=== PATIENT | female | born 1990 | race American Indian/Alaskan Native ===

== ENCOUNTER 2020-12-11 08:44 | Emergency (ER) | payer MEDICAID ==
[2020-12-11 09:13] VITALS: BP 120/86
--- NOTE | 2020-12-11 10:23 | Emergency Department Report ---
ED Back Pain/Injury HPI - General Chief Complaint: Back Pain/Injury Stated Complaint: INTENSE BACK PAIN Time Seen by Provider: 12/11/20 10:17 Source: patient Limitations: No Limitations - History of Present Illness Initial Comments: Chief complaint: Back pain HPI: Is a 30-year-old female without significant past medical history presents with back pain for 1 week. Patient recently had a massage which improved her pain. She has sharp denies any pain radiating to both groin regions. She denies headache, fever, trauma, abdominal pain, vaginal discharge, dysuria. She typically has intermittent back pain infrequently. Normally is mild. This episode of back pain is much worse due to duration. Ibuprofen last night did not provide any relief. Pain is worse with bending and walking. 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 MD Complaint: back pain -: Gradual, week(s) Similar Symptoms Previously: Yes Place: work Severity scale (0 -10): 9 Quality: sharp Consistency: constant Improves With: immobilization Worsens With: movement, walking Context: other (No recent lifting or trauma) Associated Symptoms: denies other symptoms - Related Data Previous Rx's Medication Instructions Recorded Last Taken Type Cefuroxime Axetil [Ceftin] 500 mg PO Q12H #20 tablet 04/15/13 Unknown Rx Ibuprofen [Motrin] 800 mg PO TID PRN #20 tablet 04/15/13 Unknown Rx metroNIDAZOLE [Flagyl TAB] 500 mg PO BID #20 tablet 04/15/13 Unknown Rx Naproxen [Naprosyn TAB] 500 mg PO BID #30 tablet 01/03/14 Unknown Rx Acetaminophen [Acetaminophen ER 650 mg PO Q8HR PRN #90 tablet.er 04/30/15 Unknown Rx TAB] Metoclopramide [Reglan] 10 mg PO TID PRN #20 tab 04/30/15 Unknown Rx Nitrofurantoin Brooke/M-Cryst 100 mg PO Q12HR #14 capsule 04/30/15 Unknown Rx [Macrobid CAP] Ondansetron [Zofran Odt] 4 mg PO Q6H PRN #30 tab.rapdis 04/30/15 Unknown Rx Vit-Fe Fumar-FA [ 1 tab PO QDAY #90 tablet 04/30/15 Unknown Rx Vitamin] Cyclobenzaprine [Flexeril] 10 mg PO TID PRN #20 tablet 08/13/21 Unknown Rx HYDROcodone/APAP 5-325 [[place] 1 each PO Q6HR PRN #10 tablet 12/11/20 Unknown Rx 5/325] Naproxen [Naprosyn] 500 mg PO BID 5 Days #10 tablet 12/11/20 Unknown Rx Allergies Allergy/AdvReac Type Severity Reaction Status Date / Time No Known Allergies Allergy Unverified 04/14/13 22:25 ED Review of Systems ROS: Stated complaint: INTENSE BACK PAIN Other details as noted in HPI Comment: All other systems reviewed and negative Constitutional: denies: fever, malaise Respiratory: denies: cough, shortness of breath Cardiovascular: denies: chest pain Gastrointestinal: denies: abdominal pain, nausea, vomiting Genitourinary: denies: dysuria, discharge Neurological: denies: weakness ED Past Medical Hx - Past Medical History Previous Medical History?: Yes Hx Hypertension: Yes (with ) - Surgical History Past Surgical History?: Yes Additional Surgical History: 4 c-sections. Tubal ligation - Family History Family history: hypertension - Social History Smoking Status: Never Smoker Substance Use Type: None - Medications Home Medications: Home Medications Medication Instructions Recorded Confirmed Last Taken Type Cefuroxime Axetil [Ceftin] 500 mg PO Q12H #20 tablet 04/15/13 Unknown Rx Ibuprofen [Motrin] 800 mg PO TID PRN #20 tablet 04/15/13 Unknown Rx metroNIDAZOLE [Flagyl TAB] 500 mg PO BID #20 tablet 04/15/13 Unknown Rx Naproxen [Naprosyn TAB] 500 mg PO BID #30 tablet 01/03/14 Unknown Rx Acetaminophen [Acetaminophen ER 650 mg PO Q8HR PRN #90 tablet.er 04/30/15 Unknown Rx TAB] Metoclopramide [Reglan] 10 mg PO TID PRN #20 tab 04/30/15 Unknown Rx Nitrofurantoin [place]/M-Cryst 100 mg PO Q12HR #14 capsule 04/30/15 Unknown Rx [Macrobid CAP] Ondansetron [Zofran Odt] 4 mg PO Q6H PRN #30 tab.rapdis 04/30/15 Unknown Rx Vit-Fe Fumar-FA [ 1 tab PO QDAY #90 tablet 04/30/15 Unknown Rx Vitamin] Cyclobenzaprine [Flexeril] 10 mg PO TID PRN #20 tablet 12/11/20 Unknown Rx HYDROcodone/APAP 5-325 [[place] 1 each PO Q6HR PRN #10 tablet 12/11/20 Unknown Rx 5/325] Naproxen [Naprosyn] 500 mg PO BID 5 Days #10 tablet 12/11/20 Unknown Rx ED Physical Exam - General Limitations: No Limitations General appearance: alert, in no apparent distress, other (Steady normal gait, appears comfortable, able to stand change positions without assistance) - Head Head exam: Present: atraumatic, normocephalic - Eye Eye exam: Present: normal appearance - ENT ENT exam: Present: mucous membranes moist - Neck Neck exam: Present: normal inspection, full ROM - Respiratory Respiratory exam: Present: normal lung sounds bilaterally. Absent: respiratory distress, wheezes, rales, rhonchi - Cardiovascular Cardiovascular Exam: Present: regular rate, normal rhythm, normal heart sounds. Absent: systolic murmur, diastolic murmur, rubs, gallop - GI/Abdominal GI/Abdominal exam: Present: soft, normal bowel sounds. Absent: distended, tenderness, guarding, rebound - Extremities Exam Extremities exam: Present: normal inspection - Back Exam Back exam: Present: full ROM, muscle spasm. Absent: tenderness, CVA tenderness (R), paraspinal tenderness, vertebral tenderness - Neurological Exam Neurological exam: Present: alert, oriented X3 - Psychiatric Psychiatric exam: Present: normal affect, normal mood - Skin Skin exam: Present: warm, dry, intact, normal color. Absent: rash ED Course Vital Signs 12/11/20 09:12 Temperature 99.1 F Pulse Rate 75 Respiratory 18 Rate Blood Pressure 120/86 [Right] O2 Sat by Pulse 99 Oximetry ED Medical Decision Making - Medical Decision Making Acute back pain due to lumbar strain. Patient does have notable spasm in the lower paraspinal region prescribed naproxen, Flexeril, [place]. Referred to primary care physician. Recommended physical therapy and also chiropractor. Critical care attestation.: If time is entered above; I have spent that time in minutes in the direct care of this critically ill patient, excluding procedure time. ED Disposition Clinical Impression: Acute lumbar myofascial strain, Lumbar paraspinal muscle spasm Disposition: HOME / SELF CARE / HOMELESS Is pt being admited?: No Does the pt Need Aspirin: No Condition: Stable Instructions: Lumbosacral Strain, Acute Back Pain, Adult Prescriptions: Cyclobenzaprine [Flexeril] 10 mg PO TID PRN #20 tablet PRN Reason: Muscle Spasm Naproxen [Naprosyn] 500 mg PO BID 5 Days #10 tablet HYDROcodone/APAP 5-325 [[place] 5/325] 1 each PO Q6HR PRN #10 tablet PRN Reason: Pain Referrals: KHANH RIOS MD [Staff Physician] - 3-5 Days
== END 2020-12-11 10:53 | disposition home or self-care (01) ==
LOC: ED 08:44
DX: S39.012A Strain of muscle, fascia and tendon of lower back, initial encounter (principal); M62.830 Muscle spasm of back
CPT/HCPCS: 99281